=== PATIENT | male | born 1990 | race Caucasian/White ===

== ENCOUNTER 2017-12-04 21:42 | Emergency (ER) | payer MEDICAID ==
[2017-12-04] MEDS: METHYLPREDNISOLONE 125 MG INJ IM (22:58)
[2017-12-04] MEDS: IPRATROPIUM (NEB) 0.5 MG/2.5 ML AMP NEB (22:58)
[2017-12-04] MEDS: ALBUTEROL 0.083% (NEB) 2.5 MG/3 ML AMP NEB (22:58)
== END 2017-12-05 01:20 | disposition home or self-care (01) ==
LOC: FTE 12-05 01:20
DX: J45.901 Unspecified asthma with (acute) exacerbation (principal)
CPT/HCPCS: 94664; 96372; 99284-25